=== PATIENT | female | born 1990 | race Caucasian/White ===

== ENCOUNTER 2017-02-28 06:19 | Emergency (ER) | payer MEDICAID ==
[~2017-02-28] VITALS: Ht 167.6 cm; Wt 79.0 kg
[2017-02-28 06:23] VITALS: Ht 167.6 cm; Wt 79.0 kg
[2017-02-28] MEDS ORDERED: LIDOCAINE 1% (MDV) 20 ML INJ SC ONE (07:00)
--- NOTE | 2017-02-28 07:15 | QN ---
Documentation Comment My independent concise history is left neck swelling and redness. My pertinent physical exam findings are abscess to the left neck. The plan is ultrasound was done of the left neck abscess showing abscess under the skin, the patient will have incision and drainage and then Keflex and Bactrim prescriptions. Soft Tissue ultrasound performed by me: Indication: Erythema Location: Left neck Foreign Body: none Fluid Loculation: Abscess to the left neck MIKHAIL DE LA FUENTE MD Feb 28, 2017 07:15
[2017-02-28] MEDS ORDERED: SULF1TAB31 PO (07:33)
[2017-02-28] MEDS ORDERED: CEPH-443 PO (07:33)
--- NOTE | 2017-02-28 08:28 | ERD ---
ER Documentation Chief Complaint Chief Complaint neck abscess HPI 26-year-old female with a history of IV drug abuse using heroin presents with a left sided neck abscess that started about 3-4 days ago. She states that she has not injected in the area for at least a week and then she began to pick at the area and developed some swelling about 3 days ago and the pain is worse today. She describes achy pain that is localized, worse with palpation, better when she sits up. She has no difficulty swallowing. She is no fevers or chills. ROS All systems reviewed and are negative except as per history of present illness. Medications Home Meds Active Scripts Sulfamethoxazole/Trimethoprim* (Bactrim Ds* Tablet) 1 Each Tablet, 1 TAB PO BID , #14 TAB Prov:GRETCHEN FONTANEZ PA-C 02/28/17 Cephalexin* (Keflex*) 500 Mg Capsule, 500 MG PO QID for 7 Days, CAP Prov:GRETCHEN FONTANEZ PA-C 02/28/17 Allergies Allergies: Coded Allergies: No Known Allergy (Unverified , 02/28/17) PMhx/Soc History of Surgery: Yes (bilat ears) Anesthesia Reaction: No Hx Neurological Disorder: No Hx Respiratory Disorders: No Hx Cardiac Disorders: No Hx Psychiatric Problems: No Hx Miscellaneous Medical Probl: No Hx Alcohol Use: No Hx Substance Use: No Hx Tobacco Use: Yes Smoking Status: Current every day smoker Physical Exam Vitals Vital Signs Date Time Temp Pulse Resp B/P Pulse Ox O2 Delivery O2 Flow Rate FiO2 02/28/17 06:23 97.8 116 20 119/61 98 Physical Exam General: Well-developed, well-nourished. The patient appears in no acute distress. HEENT: Head is normocephalic, atraumatic. No scleral icterus. Neck: Supple. Nontender. There is a area of approximately 4 cm at the left lateral neck, the medial portion is indurated, the lateral portion is fluctuant and tender to palpation. There is no lymphatic streaking. No meningismus. Lungs: Clear to auscultation. Normal air movement. Heart: Regular rate and rhythm. S1 and S2 are normal. No murmurs, gallops, or rubs. Abdomen: Soft, nontender, nondistended. Bowel sounds are normoactive. Extremities: No clubbing or cyanosis. Normal pulses. Moving extremities x 4. No weakness. Neurologic: Alert and oriented 3. No focal deficits. Skin: Normal turgor. No rash or lesions. Results 24 hrs Current Medications Medications (Trade) Dose Ordered Sig/Yoly Route PRN Reason Start Time Stop Time Status Last Admin Dose Admin Lidocaine (Xylocaine 1% (Mdv) 20 ml) 20 ml ONCE ONCE SC 02/28/17 07:00 02/28/17 07:01 DC Procedures/MDM ED course: Abscess Incision and Drainage with irrigation by me: Location: Left lateral neck Anesthesia: Local 1% Lidocaine Technique: Irrigated. Disrupted loculations w/ instrumentation Packing: None Complications: Neurovascularly intact post procedure 48 hour wound check. Scar minimization instructions given. ED Ultrasound: Bedside ultrasound was performed with my attending physician, Dr. Duque. Echogenic material to be seen that is superficial, without any vascular components. Patient's skin symptoms have stabilized while they have been evaluated in the department and are appropriate for outpatient care and work up. Exam and w/u not consistent w/ sepsis, deep space infection, or foreign body. 26-year-old female with a history of IVDA presents with a left-sided neck abscess, is very fluctuant with tenderness to palpation. It did appear to be very superficial on the ultrasound, without any vascular structures and was incised and drained without any complications. I was able to remove a large amount of purulent material at the lateral aspect that was fluctuant, the medial aspect was indurated and likely limited to just cellulitis at this time. She will be started on Keflex and Bactrim and asked to do warm compresses at home and recheck the wound in 2 days. Departure Diagnosis: Primary Impression: Abscess Additional Impression: Encounter for incision and drainage procedure Condition: Good Patient Instructions: Abscess, Incision And Drainage GRETCHEN FONTANEZ PA-C Feb 28, 2017 08:28
== END 2017-02-28 09:04 | disposition home or self-care (01) ==
LOC: FTE 06:19
DX: L02.11 Cutaneous abscess of neck (principal); F17.210 Nicotine dependence, cigarettes, uncomplicated
CPT/HCPCS: 10060; Z7502; Z7610

== ENCOUNTER 2018-02-15 09:27 | Emergency (ER) | END 2018-02-15 10:17 | disposition home or self-care (01) ==